=== PATIENT | female | born 1940 | race American Indian/Alaskan Native ===

== ENCOUNTER 2016-07-11 21:22 | Emergency (ER) | payer MEDICARE, OTHER ==
[2016-07-11] MEDS ORDERED: D50W (25GM) IV ONE ×2 (22:14→22:20)
[2016-07-11 23:09] LABS: Anion Gap 17 mmol/L; BUN/Creatinine Ratio 26.66; Blood Urea Nitrogen 24 mg/dL (7-17); Calcium 9.3 mg/dL (8.4-10.2); Carbon Dioxide 25 mmol/L (22-30); Chloride 103.2 mmol/L (98-107); Glucose 165 mg/dL (65-100); Potassium 4.3 mmol/L (3.6-5.0); Sodium 141 mmol/L (137-145)
[2016-07-11 23:14] LABS: Basophils % (Auto) 0.4 % (0.0-1.8); Eosinophils % (Auto) 0.8 % (0.0-4.3); Hematocrit 37.7 % (30.3-42.9); Hemoglobin 12.1 gm/dl (10.1-14.3); Mean Corpuscular HGB Conc 32 % (30-34); Mean Corpuscular Volume 80 fl (79-97); Platelet Count 211 K/mm3 (140-440); Red Cell Distribution Width 15.5 % (13.2-15.2); White Blood Count 6.9 K/mm3 (4.5-11.0)
[2016-07-11 23:16] LABS: Mean Corpuscular Hemoglobin 26 pg (28-32)
[2016-07-11 23:40] LABS: Bilirubin,Urine NEG (Negative); Blood,Urine NEG (Negative); Ketones,Urine NEG (Negative); Leukocyte Esterase,Urine MOD (Negative); Mucus,Urine FEW /HPF; Nitrite,Urine NEG (Negative); Protein,Urine <15 mg/dL mg/dL (Negative); Urobilinogen,Urine < 2.0 mg/dL (<2.0)
[2016-07-12 00:06] LABS: Anion Gap 19 mmol/L; BUN/Creatinine Ratio 31.25; Blood Urea Nitrogen 25 mg/dL (7-17); Calcium 9.4 mg/dL (8.4-10.2); Carbon Dioxide 23 mmol/L (22-30); Chloride 104.6 mmol/L (98-107); Glucose 139 mg/dL (65-100); Potassium 4.3 mmol/L (3.6-5.0); Sodium 142 mmol/L (137-145)
--- NOTE | 2016-07-12 01:20 | Emergency Department Report ---
ED General Adult HPI - General Chief complaint: Hypoglycemia Stated complaint: MIGRAINE,RT LEG PAIN Time Seen by Provider: 07/12/16 01:00 Source: patient, EMS Mode of arrival: Stretcher Limitations: Physical Limitation - History of Present Illness Initial comments: 75-year-old female with a past medical history diabetes and hypertension presents to the hospital with hypoglycemic episode. Patient stated she had generalized weakness. Upon EMS arrival Accu-Chek was 47. Upon arrival here patient received 1 amp of D50 and was fed. Positive improvement. Patient complained of a frontal headache that has improved since arrival. Patient is a chronic right leg ulcer and she has had it checked and rewrapped by wound care yesterday. No reports of infection. Severity scale (0 -10): 0 - Related Data Home Medications Medication Instructions Recorded Confirmed Last Taken Ascorbic Acid 500 mg PO DAILY 07/12/16 07/12/16 Unknown Brimonidine 0.15% 1 drop OU Q8H 07/12/16 07/12/16 Unknown Cosopt Pf Eye Drops 1 drop OU BID 07/12/16 07/12/16 Unknown Detrol LA 4 mg PO DAILY 07/12/16 07/12/16 Unknown Docusate Sodium 100 mg PO DAILY 07/12/16 07/12/16 Unknown Doxepin 25 mg PO HS 07/12/16 07/12/16 Unknown Insulin Aspart 3 unit SQ AC 07/12/16 07/12/16 Unknown Insulin Glargine 14 units SQ HS 07/12/16 07/12/16 Unknown Ipratropium/Albuterol Sulfate 3 ml IH QID PRN 07/12/16 07/12/16 Unknown Lisinopril 10 mg PO DAILY 07/12/16 07/12/16 Unknown Montelukast 10 mg PO HS 07/12/16 07/12/16 Unknown NexIUM 24Hr 40 mg PO DAILY 07/12/16 07/12/16 Unknown Potassium Chloride 20 meq PO DAILY 07/12/16 07/12/16 Unknown Simvastatin 20 mg PO DAILY 07/12/16 07/12/16 Unknown amLODIPine 5 mg PO DAILY 07/12/16 07/12/16 Unknown metFORMIN XR 1,000 mg PO DAILY 07/12/16 07/12/16 Unknown Allergies Allergy/AdvReac Type Severity Reaction Status Date / Time diphenhydramine HCl Allergy Anaphylaxis Verified 07/11/16 22:20 [From Benderrickl] Penicillins Allergy Anaphylaxis Verified 07/11/16 22:20 ED Review of Systems ROS: Stated complaint: MIGRAINE,RT LEG PAIN Other details as noted in HPI Comment: All other systems reviewed and negative Other: Constitutional: No fevers chills Eyes: No eye pain visual changes or discharge ENT: No ear pain or throat pain Neck: Denies pain Respiratory: Denies cough wheezing shortness of breath Cardiovascular: Denies chest pain, palpitations GI: Denies abdominal pain, nausea, vomiting, diarrhea : Denies dysuria, urinary frequency, or urgency Musculoskeletal: Denies back pain, joint swelling Skin: Chronic right leg ulcer Neurologic: Denies numbness, or focal weakness Psychiatric: Denies suicidal ideation, hallucinations ED Past Medical Hx - Past Medical History Previous Medical History?: Yes Hx Hypertension: Yes Hx Diabetes: Yes Additional medical history: Pancreatitis - Surgical History Past Surgical History?: Yes Additional Surgical History: "Pancreas" - Social History Smoking Status: Never Smoker Substance Use Type: None - Medications Home Medications: Home Medications Medication Instructions Recorded Confirmed Last Taken Type Ascorbic Acid 500 mg PO DAILY 07/12/16 07/12/16 Unknown History Brimonidine 0.15% 1 drop OU Q8H 07/12/16 07/12/16 Unknown History Cosopt Pf Eye Drops 1 drop OU BID 07/12/16 07/12/16 Unknown History Detrol LA 4 mg PO DAILY 07/12/16 07/12/16 Unknown History Docusate Sodium 100 mg PO DAILY 07/12/16 07/12/16 Unknown History Doxepin 25 mg PO HS 07/12/16 07/12/16 Unknown History Insulin Aspart 3 unit SQ AC 07/12/16 07/12/16 Unknown History Insulin Glargine 14 units SQ HS 07/12/16 07/12/16 Unknown History Ipratropium/Albuterol Sulfate 3 ml IH QID PRN 07/12/16 07/12/16 Unknown History Lisinopril 10 mg PO DAILY 07/12/16 07/12/16 Unknown History Montelukast 10 mg PO HS 07/12/16 07/12/16 Unknown History NexIUM 24Hr 40 mg PO DAILY 07/12/16 07/12/16 Unknown History Potassium Chloride 20 meq PO DAILY 07/12/16 07/12/16 Unknown History Simvastatin 20 mg PO DAILY 07/12/16 07/12/16 Unknown History amLODIPine 5 mg PO DAILY 07/12/16 07/12/16 Unknown History metFORMIN XR 1,000 mg PO DAILY 07/12/16 07/12/16 Unknown History ED Physical Exam - General Limitations: Physical Limitation - Other Other exam information: General: No limitations, patient is alert in no acute distress Head exam: Atraumatic, normocephalic Eyes exam: Normal appearance, pupils equal reactive to light, extraocular movements intact ENT: Moist mucous membrane, normal oropharynx Neck exam: Normal inspection, full range of motion, no meningismus nontender Respiratory exam: Clear to auscultation bilateral, no wheezes, rales, crackles Cardiovascular: Normal rate and rhythm, normal heart sounds Abdomen: Soft, nondistended, and nontender, with normal bowel sounds, no rebound, or guarding Extremity: Full range of motion. Right leg extensively wrapped by wound care nurse and not removed since examined yesterday and no reports of infection Back: Normal Inspection, full range of motion, no tenderness Neurologic: Alert, oriented x3, cranial nerves intact, no motor or sensory deficit Psychiatric: normal affect, normal mood Skin: Warm, dry, intact ED Course Vital Signs 07/11/16 07/11/16 23:11 23:24 Temperature 98 F Pulse Rate 89 Respiratory 16 16 Rate Blood Pressure 164/74 [Left] O2 Sat by Pulse 100 100 Oximetry - Reevaluation(s) Reevaluation #1: 07/12/16 01:18 Patient reports feeling much better since being in the ED. Still has a mild residual headache. Declines offer for pain medication at that time stating she trusts it would get better on its own. ED Medical Decision Making - Lab Data Result diagrams: 07/11/16 22:45 07/11/16 23:29 Lab Results 07/11/16 07/11/16 07/11/16 Range/Units 22:15 22:40 22:45 WBC 6.9 (4.5-11.0) K/mm3 RBC 4.70 (3.65-5.03) M/mm3 Hgb 12.1 (10.1-14.3) gm/dl Hct 37.7 (30.3-42.9) % MCV 80 (79-97) fl MCH 26 L (28-32) pg MCHC 32 (30-34) % RDW 15.5 H (13.2-15.2) % Plt Count 211 (140-440) K/mm3 Lymph % (Auto) 15.9 (13.4-35.0) % [place] % (Auto) 6.6 (0.0-7.3) % Eos % (Auto) 0.8 (0.0-4.3) % Baso % (Auto) 0.4 (0.0-1.8) % Lymph # 1.1 L (1.2-5.4) K/mm3 [place] # 0.5 (0.0-0.8) K/mm3 Eos # 0.1 (0.0-0.4) K/mm3 Baso # 0.0 (0.0-0.1) K/mm3 Seg Neutrophils % 76.3 H (40.0-70.0) % Seg Neutrophils # 5.3 (1.8-7.7) K/mm3 Sodium 141 (137-145) mmol/L Potassium 4.3 (3.6-5.0) mmol/L Chloride 103.2 (98-107) mmol/L Carbon Dioxide 25 (22-30) mmol/L Anion Gap 17 mmol/L BUN 24 H (7-17) mg/dL Creatinine 0.9 (0.7-1.2) mg/dL Estimated GFR > 60 ml/min BUN/Creatinine Ratio 26.66 % Glucose 165 H (65-100) mg/dL POC Glucose 43 L (70-105) Calcium 9.3 (8.4-10.2) mg/dL Urine Color (Yellow) Urine Turbidity (Clear) Urine pH (5.0-7.0) Ur Specific [place] (1.003-1.030) Urine Protein (Negative) mg/dL Urine Glucose (UA) (Negative) mg/dL Urine Ketones (Negative) mg/dL Urine Blood (Negative) Urine Nitrite (Negative) Urine Bilirubin (Negative) Urine Urobilinogen (<2.0) mg/dL Ur Leukocyte Esterase (Negative) Urine WBC (Auto) (0.0-6.0) /HPF Urine RBC (Auto) (0.0-6.0) /HPF U Epithel Cells (Auto) (0-13.0) /HPF Urine Mucus /HPF 07/11/16 07/11/16 07/12/16 Range/Units 23:11 23:29 00:07 WBC (4.5-11.0) K/mm3 RBC (3.65-5.03) M/mm3 Hgb (10.1-14.3) gm/dl Hct (30.3-42.9) % MCV (79-97) fl MCH (28-32) pg MCHC (30-34) % RDW (13.2-15.2) % Plt Count (140-440) K/mm3 Lymph % (Auto) (13.4-35.0) % [place] % (Auto) (0.0-7.3) % Eos % (Auto) (0.0-4.3) % Baso % (Auto) (0.0-1.8) % Lymph # (1.2-5.4) K/mm3 [place] # (0.0-0.8) K/mm3 Eos # (0.0-0.4) K/mm3 Baso # (0.0-0.1) K/mm3 Seg Neutrophils % (40.0-70.0) % Seg Neutrophils # (1.8-7.7) K/mm3 Sodium 142 (137-145) mmol/L Potassium 4.3 (3.6-5.0) mmol/L Chloride 104.6 (98-107) mmol/L Carbon Dioxide 23 (22-30) mmol/L Anion Gap 19 mmol/L BUN 25 H (7-17) mg/dL Creatinine 0.8 (0.7-1.2) mg/dL Estimated GFR > 60 ml/min BUN/Creatinine Ratio 31.25 % Glucose 139 H (65-100) mg/dL POC Glucose 147 H (70-105) Calcium 9.4 (8.4-10.2) mg/dL Urine Color Yellow (Yellow) Urine Turbidity Clear (Clear) Urine pH 6.0 (5.0-7.0) Ur Specific [place] 1.020 (1.003-1.030) Urine Protein <15 mg/dl (Negative) mg/dL Urine Glucose (UA) 50 (Negative) mg/dL Urine Ketones Neg (Negative) mg/dL Urine Blood Neg (Negative) Urine Nitrite Neg (Negative) Urine Bilirubin Neg (Negative) Urine Urobilinogen < 2.0 (<2.0) mg/dL Ur Leukocyte Esterase Mod (Negative) Urine WBC (Auto) 9.0 H (0.0-6.0) /HPF Urine RBC (Auto) 1.0 (0.0-6.0) /HPF U Epithel Cells (Auto) 1.0 (0-13.0) /HPF Urine Mucus Few /HPF - Medical Decision Making Patient received D50 IV and food in the ED and blood sugar remained above 100 without recurrent hypoglycemia. Patient feels better and is stable for discharge. No signs of infection at this time - Differential Diagnosis infection, insulin reaction, hypoglycemia, poor food intake Critical Care Time: No Critical care attestation.: If time is entered above; I have spent that time in minutes in the direct care of this critically ill patient, excluding procedure time. ED Disposition Clinical Impression: Hypoglycemia due to insulin Disposition: DISCHARGED TO HOME OR SELFCARE Is pt being admited?: No Does the pt Need Aspirin: No Condition: Stable Instructions: Diabetic Hypoglycemia (ED) Additional Instructions: Continue current medication and eat appropriately. Follow-up with your doctor and return if symptoms worsen. Referrals: PRIMARY CARE, [Primary Care Provider] - 2-3 Days Time of Disposition: 01:20
[2016-07-12 02:09] VITALS: BP 152/76
== END 2016-07-12 01:30 | disposition home or self-care (01) ==
LOC: ED 21:22
DX: E09.649 Drug or chemical induced diabetes mellitus with hypoglycemia without coma (principal); Z79.4 Long term (current) use of insulin; I10 Essential (primary) hypertension; Z88.0 Allergy status to penicillin; Z88.8 Allergy status to other drugs, medicaments and biological substances
CPT/HCPCS: 36415; 80048; 81001; 82962; 85025; 99284

== ENCOUNTER 2016-12-18 09:09 | Inpatient (IN) | payer MEDICARE, OTHER ==
[2016-12-18 09:57] LABS: Basophils % (Auto) 0.5 % (0.0-1.8); Eosinophils % (Auto) 0.8 % (0.0-4.3); Hematocrit 40.3 % (30.3-42.9); Hemoglobin 13.1 gm/dl (10.1-14.3); Mean Corpuscular HGB Conc 33 % (30-34); Mean Corpuscular Hemoglobin 26 pg (28-32); Mean Corpuscular Volume 80 fl (79-97); Platelet Count 190 K/mm3 (140-440); Red Blood Count 5.03 M/mm3 (3.65-5.03); Red Cell Distribution Width 16.4 % (13.2-15.2); White Blood Count 7.2 K/mm3 (4.5-11.0)
[2016-12-18 10:07] LABS: INR 0.97 (0.87-1.13)
[2016-12-18 10:08] LABS: Creatine Kinase MB 3.8 ng/mL (0.0-4.0); Partial Thromboplastin Time 29.4 Sec. (24.2-36.6)
[2016-12-18 10:09] LABS: Anion Gap 16 mmol/L; Blood Urea Nitrogen 26 mg/dL (7-17); Calcium 8.9 mg/dL (8.4-10.2); Carbon Dioxide 25 mmol/L (22-30); Chloride 105.7 mmol/L (98-107); Creatine Kinase 265 units/L (30-135); Potassium 4.1 mmol/L (3.6-5.0); Sodium 143 mmol/L (137-145)
[2016-12-18 10:22] LABS: Glucose 34 mg/dL (65-100)
[2016-12-18] MEDS ORDERED: D50W (25GM) IV ONE (10:22)
--- NOTE | 2016-12-18 10:49 | Cat Scan Report ---
CT SCAN OF THE CERVICAL SPINE: HISTORY: Injury. TECHNIQUE: Contiguous 1.25 mm axial images of the cervical spine were obtained. Sagittal and coronal reformatted images. FINDINGS: There is normal alignment of the cervical spine. The body, pedicles and posterior ligaments appear normal. No evidence of fracture or subluxation is seen. The spinal canal appears normal. The prevertebral soft tissues appear normal. IMPRESSION: Unremarkable CT of the cervical spine. No acute process is noted.
--- NOTE | 2016-12-18 10:49 | Cat Scan Report ---
CT HEAD WITHOUT CONTRAST: HISTORY: Altered mental status. TECHNIQUE: Sequential CT images without contrast. FINDINGS: Images obtained show bilateral prominence of the sulci and ventricles. There are no abnormal intra- or extra-axial blood or fluid collections. There are no focal masses or evidence of mass effect. The barbour white matter differentiation appears within normal limits. Regions of periventricular decreased attenuation are consistent with microangiopathic ischemic disease. The posterior fossa structures including the fourth ventricle, cerebellum, and brainstem appear normal. IMPRESSION: Evidence of atrophy and microangiopathic ischemic disease. No acute intracranial process noted.
[2016-12-18 11:15] LABS: Bilirubin,Urine NEG (Negative); Blood,Urine NEG (Negative); Ketones,Urine NEG (Negative); Leukocyte Esterase,Urine NEG (Negative); Nitrite,Urine NEG (Negative); Protein,Urine <15 mg/dL mg/dL (Negative); Urobilinogen,Urine < 2.0 mg/dL (<2.0); WBC,Urine < 1.0 /HPF (0.0-6.0)
--- NOTE | 2016-12-18 12:56 | Emergency Department Report ---
ED Altered Mental Status HPI - General Chief Complaint: Altered Mental Status Stated Complaint: ALTERED MENTAL STATUA Time Seen by Provider: 12/18/16 09:22 Source: family, EMS Mode of arrival: Stretcher Limitations: Altered Mental Status - History of Present Illness Initial Comments: 76-year-old female with a history of insulin-dependent diabetes, hypertension, and pancreatitis requiring surgical treatment in the past presents to the hospital complains of alteration in mental status. Patient lives with her daughter. Patient was found on the floor at approximately 7 AM and her daughter heard her calling out for her mother. His speech was slurred and incoherent. Daughter gave banana and sugar under her tongue without improvement. Daughter informs us that Accu-Chek was in the 70s prior to arrival. - Related Data Home Medications Medication Instructions Recorded Confirmed Last Taken Ascorbic Acid 500 mg PO DAILY 07/12/16 12/18/16 Unknown Brimonidine 0.15% 2 drop OU Q8H 07/12/16 12/18/16 Unknown Cosopt Pf Eye Drops 1 drop OU BID 07/12/16 12/18/16 Unknown Detrol LA 4 mg PO DAILY 07/12/16 12/18/16 Unknown Docusate Sodium 200 mg PO BID 07/12/16 12/18/16 Unknown Doxepin 25 mg PO HS 07/12/16 12/18/16 Unknown Insulin Aspart 3 unit SQ AC 07/12/16 12/18/16 Unknown Insulin Glargine 14 units SQ HS 07/12/16 12/18/16 Unknown Lisinopril 10 mg PO DAILY 07/12/16 12/18/16 Unknown Montelukast 10 mg PO HS 07/12/16 12/18/16 Unknown NexIUM 24Hr 40 mg PO DAILY 07/12/16 12/18/16 Unknown Potassium Chloride 20 meq PO DAILY 07/12/16 12/18/16 Unknown Simvastatin 20 mg PO DAILY 07/12/16 12/18/16 Unknown amLODIPine 10 mg PO DAILY 07/12/16 12/18/16 Unknown metFORMIN XR 1,000 mg PO DAILY 07/12/16 12/18/16 Unknown Allergies Allergy/AdvReac Type Severity Reaction Status Date / Time diphenhydramine HCl Allergy Anaphylaxis Verified 07/11/16 22:20 [From Benadryl] Penicillins Allergy Anaphylaxis Verified 07/11/16 22:20 ED Review of Systems ROS: Stated complaint: ALTERED MENTAL STATUA Other details as noted in HPI Comment: All other systems reviewed and negative Other: Constitutional: No fevers chills Eyes: No eye pain visual changes or discharge ENT: No ear pain or throat pain Neck: Denies pain Respiratory: Denies cough wheezing shortness of breath Cardiovascular: Denies chest pain, palpitations, syncope GI: Denies abdominal pain : Denies dysuria Musculoskeletal: Denies back pain, joint swelling Skin: Chronic right leg will be managed by milla Carlos wound dressing in place Neurologic: Confusion Psychiatric: Denies suicidal ideation, hallucinations Hematological/lymphatic: Denies easy bruising, lymphadenopathy ED Past Medical Hx - Past Medical History Hx Hypertension: Yes Hx Diabetes: Yes Additional medical history: Pancreatitis, PVD - Surgical History Additional Surgical History: "Pancreas" - Social History Smoking Status: Never Smoker Substance Use Type: None - Medications Home Medications: Home Medications Medication Instructions Recorded Confirmed Last Taken Type Ascorbic Acid 500 mg PO DAILY 07/12/16 12/18/16 Unknown History Brimonidine 0.15% 2 drop OU Q8H 07/12/16 12/18/16 Unknown History Cosopt Pf Eye Drops 1 drop OU BID 07/12/16 12/18/16 Unknown History Detrol LA 4 mg PO DAILY 07/12/16 12/18/16 Unknown History Docusate Sodium 200 mg PO BID 07/12/16 12/18/16 Unknown History Doxepin 25 mg PO HS 07/12/16 12/18/16 Unknown History Insulin Aspart 3 unit SQ AC 07/12/16 12/18/16 Unknown History Insulin Glargine 14 units SQ HS 07/12/16 12/18/16 Unknown History Lisinopril 10 mg PO DAILY 07/12/16 12/18/16 Unknown History Montelukast 10 mg PO HS 07/12/16 12/18/16 Unknown History NexIUM 24Hr 40 mg PO DAILY 07/12/16 12/18/16 Unknown History Potassium Chloride 20 meq PO DAILY 07/12/16 12/18/16 Unknown History Simvastatin 20 mg PO DAILY 07/12/16 12/18/16 Unknown History amLODIPine 10 mg PO DAILY 07/12/16 12/18/16 Unknown History metFORMIN XR 1,000 mg PO DAILY 07/12/16 12/18/16 Unknown History ED Physical Exam - General Limitations: Altered Mental Status - Other Other exam information: General: No limitations, patient is alert in no acute distress Head exam: Atraumatic, normocephalic Eyes exam: Normal appearance, pupils equal reactive to light, extraocular movements intact ENT: Moist mucous membrane, normal oropharynx Neck exam: Normal inspection, full range of motion, no meningismus nontender Respiratory exam: Clear to auscultation bilateral, no wheezes, rales, crackles Cardiovascular: Normal rate and rhythm, normal heart sounds Abdomen: Soft, nondistended, and nontender, with normal bowel sounds, no rebound, or guarding Extremity: Full range of motion normal inspection no deformity. Unna boot dressing to right foot. 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 Psychiatric: normal affect, normal mood Skin: Warm, dry, intact ED Course Vital Signs 12/18/16 12/18/16 12/18/16 09:23 09:31 09:54 Temperature 98.1 F 98.2 F Pulse Rate 86 83 Respiratory 17 Rate Blood Pressure 161/79 161/79 O2 Sat by Pulse 100 98 Oximetry 12/18/16 10:08 Temperature Pulse Rate Respiratory 20 Rate Blood Pressure O2 Sat by Pulse 99 Oximetry - Reevaluation(s) Reevaluation #1: 12/18/16 Accu-Chek in the last was in the 30s. Patient did not have any peripheral IV access despite multiple Nurse attempts. I placed 20-gauge in the right external jugular vein. One amp of D50 administered. Patient did subsequently fed. Accu-Chek is improved and mental status is at baseline. Patient states that she last took her Lantus at bedtime and did not take any insulin this morning. Patient has not yet eaten prior to being sent in the ED. Patient reports this is her regular schedule and there wasn't any new delay in her typical food intake time. - EJ/Peripheral Line Neck R Time Out Performed: Yes Indications: nurses unable to establis Skin Cleansed in Sterile Fashion: Yes Size: 20 Dressing Placed: Tegaderm, tape Patient Tolerated Procedure: well - Lab Data Result diagrams: 12/18/16 09:30 12/18/16 09:30 Lab Results 12/18/16 12/18/16 12/18/16 Range/Units 09:30 09:30 09:30 WBC 7.2 (4.5-11.0) K/mm3 RBC 5.03 (3.65-5.03) M/mm3 Hgb 13.1 (10.1-14.3) gm/dl Hct 40.3 (30.3-42.9) % MCV 80 (79-97) fl MCH 26 L (28-32) pg MCHC 33 (30-34) % RDW 16.4 H (13.2-15.2) % Plt Count 190 (140-440) K/mm3 Lymph % (Auto) 11.4 L (13.4-35.0) % [place] % (Auto) 4.2 (0.0-7.3) % Eos % (Auto) 0.8 (0.0-4.3) % Baso % (Auto) 0.5 (0.0-1.8) % Lymph # 0.8 L (1.2-5.4) K/mm3 [place] # 0.3 (0.0-0.8) K/mm3 Eos # 0.1 (0.0-0.4) K/mm3 Baso # 0.0 (0.0-0.1) K/mm3 Seg Neutrophils % 83.1 H (40.0-70.0) % Seg Neutrophils # 6.0 (1.8-7.7) K/mm3 PT 13.4 (12.2-14.9) Sec. INR 0.97 (0.87-1.13) APTT 29.4 (24.2-36.6) Sec. Sodium 143 (137-145) mmol/L Potassium 4.1 (3.6-5.0) mmol/L Chloride 105.7 (98-107) mmol/L Carbon Dioxide 25 (22-30) mmol/L Anion Gap 16 mmol/L BUN 26 H (7-17) mg/dL Creatinine 1.0 (0.7-1.2) mg/dL Estimated GFR > 60 ml/min BUN/Creatinine Ratio 26.00 % Glucose 34 L* (65-100) mg/dL POC Glucose (70-105) Calcium 8.9 (8.4-10.2) mg/dL Ammonia (25-60) umol/L Total Creatine Kinase 265 H (30-135) units/L CK-MB (CK-2) 3.8 (0.0-4.0) ng/mL CK-MB (CK-2) Rel Index 1.4 (0-4) Troponin T < 0.010 (0.00-0.029) ng/mL TSH (0.270-4.200) mlU/mL Free T4 (0.76-1.46) ng/dL Urine Color (Yellow) Urine Turbidity (Clear) Urine pH (5.0-7.0) Ur Specific [place] (1.003-1.030) Urine Protein (Negative) mg/dL Urine Glucose (UA) (Negative) mg/dL Urine Ketones (Negative) mg/dL Urine Blood (Negative) Urine Nitrite (Negative) Urine Bilirubin (Negative) Urine Urobilinogen (<2.0) mg/dL Ur Leukocyte Esterase (Negative) Urine WBC (Auto) (0.0-6.0) /HPF Urine RBC (Auto) (0.0-6.0) /HPF U Epithel Cells (Auto) (0-13.0) /HPF Blood Type Antibody Screen [facility] Antibody Screen Antibody Identification 12/18/16 12/18/16 12/18/16 Range/Units 09:30 09:30 10:10 WBC (4.5-11.0) K/mm3 RBC (3.65-5.03) M/mm3 Hgb (10.1-14.3) gm/dl Hct (30.3-42.9) % MCV (79-97) fl MCH (28-32) pg MCHC (30-34) % RDW (13.2-15.2) % Plt Count (140-440) K/mm3 Lymph % (Auto) (13.4-35.0) % [place] % (Auto) (0.0-7.3) % Eos % (Auto) (0.0-4.3) % Baso % (Auto) (0.0-1.8) % Lymph # (1.2-5.4) K/mm3 [place] # (0.0-0.8) K/mm3 Eos # (0.0-0.4) K/mm3 Baso # (0.0-0.1) K/mm3 Seg Neutrophils % (40.0-70.0) % Seg Neutrophils # (1.8-7.7) K/mm3 PT (12.2-14.9) Sec. INR (0.87-1.13) APTT (24.2-36.6) Sec. Sodium (137-145) mmol/L Potassium (3.6-5.0) mmol/L Chloride (98-107) mmol/L Carbon Dioxide (22-30) mmol/L Anion Gap mmol/L BUN (7-17) mg/dL Creatinine (0.7-1.2) mg/dL Estimated GFR ml/min BUN/Creatinine Ratio % Glucose (65-100) mg/dL POC Glucose (70-105) Calcium (8.4-10.2) mg/dL Ammonia 37.0 (25-60) umol/L Total Creatine Kinase (30-135) units/L CK-MB (CK-2) (0.0-4.0) ng/mL CK-MB (CK-2) Rel Index (0-4) Troponin T (0.00-0.029) ng/mL TSH 1.290 (0.270-4.200) mlU/mL Free T4 1.16 (0.76-1.46) ng/dL Urine Color (Yellow) Urine Turbidity (Clear) Urine pH (5.0-7.0) Ur Specific [place] (1.003-1.030) Urine Protein (Negative) mg/dL Urine Glucose (UA) (Negative) mg/dL Urine Ketones (Negative) mg/dL Urine Blood (Negative) Urine Nitrite (Negative) Urine Bilirubin (Negative) Urine Urobilinogen (<2.0) mg/dL Ur Leukocyte Esterase (Negative) Urine WBC (Auto) (0.0-6.0) /HPF Urine RBC (Auto) (0.0-6.0) /HPF U Epithel Cells (Auto) (0-13.0) /HPF Blood Type B NEGATIVE Antibody Screen TNR [facility] Antibody Screen Positive Antibody Identification Anti-D (Actively Aquired) 12/18/16 12/18/16 Range/Units 10:47 12:25 WBC (4.5-11.0) K/mm3 RBC (3.65-5.03) M/mm3 Hgb (10.1-14.3) gm/dl Hct (30.3-42.9) % MCV (79-97) fl MCH (28-32) pg MCHC (30-34) % RDW (13.2-15.2) % Plt Count (140-440) K/mm3 Lymph % (Auto) (13.4-35.0) % [place] % (Auto) (0.0-7.3) % Eos % (Auto) (0.0-4.3) % Baso % (Auto) (0.0-1.8) % Lymph # (1.2-5.4) K/mm3 [place] # (0.0-0.8) K/mm3 Eos # (0.0-0.4) K/mm3 Baso # (0.0-0.1) K/mm3 Seg Neutrophils % (40.0-70.0) % Seg Neutrophils # (1.8-7.7) K/mm3 PT (12.2-14.9) Sec. INR (0.87-1.13) APTT (24.2-36.6) Sec. Sodium (137-145) mmol/L Potassium (3.6-5.0) mmol/L Chloride (98-107) mmol/L Carbon Dioxide (22-30) mmol/L Anion Gap mmol/L BUN (7-17) mg/dL Creatinine (0.7-1.2) mg/dL Estimated GFR ml/min BUN/Creatinine Ratio % Glucose (65-100) mg/dL POC Glucose 76 (70-105) Calcium (8.4-10.2) mg/dL Ammonia (25-60) umol/L Total Creatine Kinase (30-135) units/L CK-MB (CK-2) (0.0-4.0) ng/mL CK-MB (CK-2) Rel Index (0-4) Troponin T (0.00-0.029) ng/mL TSH (0.270-4.200) mlU/mL Free T4 (0.76-1.46) ng/dL Urine Color Colorless (Yellow) Urine Turbidity Clear (Clear) Urine pH 7.0 (5.0-7.0) Ur Specific [place] 1.006 (1.003-1.030) Urine Protein <15 mg/dl (Negative) mg/dL Urine Glucose (UA) 50 (Negative) mg/dL Urine Ketones Neg (Negative) mg/dL Urine Blood Neg (Negative) Urine Nitrite Neg (Negative) Urine Bilirubin Neg (Negative) Urine Urobilinogen < 2.0 (<2.0) mg/dL Ur Leukocyte Esterase Neg (Negative) Urine WBC (Auto) < 1.0 (0.0-6.0) /HPF Urine RBC (Auto) 1.0 (0.0-6.0) /HPF U Epithel Cells (Auto) < 1.0 (0-13.0) /HPF Blood Type Antibody Screen [facility] Antibody Screen Antibody Identification - EKG Data -: EKG Interpreted by Me (sinus rhythm 85 inferior and septal Q waves. No ST elevation) - Radiology Data Radiology results: report reviewed CT head: Atrophy and microangiopathic ischemic disease. No acute findings CT cervical spine: Unremarkable - Medical Decision Making Pt's mental status improved to baseline after improvement and glucose. I suspect that alteration in mental status secondary to hypoglycemia. Cause unknown since patient has taken her normal dose of medication and states she has been eating appropriately. Patient will be admitted for observation. - Differential Diagnosis hypoglycemia, CVA, encephalopathy, UTI/infection Critical Care Time: No Critical care attestation.: If time is entered above; I have spent that time in minutes in the direct care of this critically ill patient, excluding procedure time. ED Disposition Clinical Impression: Hypoglycemia, Insulin dependent diabetes mellitus Disposition: OP ADMIT IP TO THIS HOSP Is pt being admited?: Yes Condition: Stable Time of Disposition: 12:56 (Dr Ferrell/hosp)
--- NOTE | 2016-12-18 13:16 | Admit Criteria Form ---
Admission Criteria Documentation: DIABETES, HYPOGLYCEMIA Clinical Indications for Admission to Inpatient Care (Place 'X' for any and all applicable criteria): Admission is indicated for ALL of the following (1)(2)(3)(4)(5): [X ]I. Suspected or documented hypoglycemia (plasma glucose less than 50 mg/ dL (2.78 mmol/L)) with severe clinical manifestations or issues as indicated by ANY ONE of the following: [X]a) Altered mental status (eg, coma, confusion) [ ]b) Seizure [ ]c) Ataxia [ ]d) Dysphasia [ ]e) Focal neurologic deficit(6) [ ]f) Severe weakness or fatigue [ ]g) Significant clinical signs or symptoms that do not resolve with treatment [ ]h) Hypoglycemia induced by ANY ONE of the following(7)(8)(9): [ ]i) Sulfonylurea(10) [ ]ii) Long-acting insulin (eg, half-life more than 6 hours ) (11) [ ]II. Management at other levels of care (See General Criteria: Observation Care) is not feasible because of ANY ONE of the following: [ ]a) Condition was not adequately corrected with treatment at other levels of care. [ ]b) Treatment at other levels of care is not appropriate because of condition severity (eg, coma). Extended stay beyond goal length of stay may be needed for(3)(12)(19): [ ]a) Long acting sulfonylurea-inducing hypoglycemia (10) [ ]b) Presentation in coma [ ]c) Identified etiology of hypoglycemia requires ongoing care (eg, infection ) [ ]d) Neurologic deficit [ ]e) Active serious comorbidities (eg, renal failure, heart failure) The original [employer] content created by [employer] has been revised. The portions of the content which have been revised are identified through the use of italic text or in bold, and [facility] has neither reviewed nor approved the modified material.All other unmodified content is copyright [facility]. Please see references footnoted in the original [facility] edition 2016 Admission Criteria Met: Yes
--- NOTE | 2016-12-18 18:04 | History and Physical Report ---
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 EMS was called in. Blood sugar was found to be in the 70s. She was given D50. Brought to the emergency department. Patient was found to be in the 34. Patient was given another ampule of D50. CT scan of the brain and spine where unremarkable for any fractures or dislocation. At emergency department the patient was given further D50. Mental status continued to improve. Past History Past Medical History: hypertension, hyperlipidemia, other (right lower extremities ulceration) Past Surgical History: No surgical history Social history: denies: smoking, alcohol abuse, prescription drug abuse Family history: no significant family history Medications and Allergies Allergies Allergy/AdvReac Type Severity Reaction Status Date / Time diphenhydramine HCl Allergy Anaphylaxis Verified 07/11/16 22:20 [From Benadryl] Penicillins Allergy Anaphylaxis Verified 07/11/16 22:20 Home Medications Medication Instructions Recorded Confirmed Last Taken Type Ascorbic Acid 500 mg PO DAILY 07/12/16 12/18/16 Unknown History Brimonidine 0.15% 2 drop OU Q8H 07/12/16 12/18/16 Unknown History Cosopt Pf Eye Drops 1 drop OU BID 07/12/16 12/18/16 Unknown History Detrol LA 4 mg PO DAILY 07/12/16 12/18/16 Unknown History Docusate Sodium 200 mg PO BID 07/12/16 12/18/16 Unknown History Doxepin 25 mg PO HS 07/12/16 12/18/16 Unknown History Insulin Aspart 3 unit SQ AC 07/12/16 12/18/16 Unknown History Insulin Glargine 14 units SQ HS 07/12/16 12/18/16 Unknown History Lisinopril 10 mg PO DAILY 07/12/16 12/18/16 Unknown History Montelukast 10 mg PO HS 07/12/16 12/18/16 Unknown History NexIUM 24Hr 40 mg PO DAILY 07/12/16 12/18/16 Unknown History Potassium Chloride 20 meq PO DAILY 07/12/16 12/18/16 Unknown History Simvastatin 20 mg PO DAILY 07/12/16 12/18/16 Unknown History amLODIPine 10 mg PO DAILY 07/12/16 12/18/16 Unknown History metFORMIN XR 1,000 mg PO DAILY 07/12/16 12/18/16 Unknown History Review of Systems ROS unobtainable: due to mental status Exam - Constitutional Vitals: Temp Pulse Resp BP Pulse Ox 98.2 F 83 20 161/79 99 12/18/16 09:54 12/18/16 09:54 12/18/16 10:08 12/18/16 09:54 12/18/16 10:08 General appearance: Present: no acute distress, well-nourished - EENT Eyes: Present: PERRL - Neck Neck: Present: supple, normal ROM - Respiratory Respiratory effort: normal Respiratory: bilateral: CTA - Cardiovascular Heart Sounds: Present: S1 & S2. Absent: rub, click - Extremities Extremities: pulses symmetrical, No edema Peripheral Pulses: within normal limits - Abdominal General gastrointestinal: Present: soft, non-tender, non-distended, normal bowel sounds - Integumentary Integumentary: Present: clear, warm, dry - Musculoskeletal Musculoskeletal: gait normal, strength equal bilaterally - Psychiatric Psychiatric: appropriate mood/affect, intact judgment & insight - Neurologic Neurologic: CNII-XII intact, moves all extremities Results - Labs CBC & Chem 7: 12/18/16 09:30 12/18/16 09:30 Labs: Abnormal lab results 12/18/16 12/18/16 Range/Units 09:30 09:30 MCH 26 L (28-32) pg RDW 16.4 H (13.2-15.2) % Lymph % (Auto) 11.4 L (13.4-35.0) % Lymph # 0.8 L (1.2-5.4) K/mm3 Seg Neutrophils % 83.1 H (40.0-70.0) % BUN 26 H (7-17) mg/dL Glucose 34 L* (65-100) mg/dL Total Creatine Kinase 265 H (30-135) units/L - Imaging and Cardiology EKG: report reviewed (CT scan of the brain was unremarkable) Assessment and Plan - Metabolic encephalopathy secondary to hypoglycemia - Hypoglycemia - Ulceration of the right lower extremity - Diabetes mellitus hypertension Plan We'll admit patient to [facility], Commence D5 half-normal. A1c, Sliding-scale insulin, consistent carbohydrates diet Optimize blood pressure control by commencing home oral antihypertensives Wound Care consult for chronic wound on the right lower extremity currently in an karl boot DVT prophylaxis with Lovenox and GI prophylaxis with Pepcid Spent 32 minutes during this admission process as well as in evaluating the laboratory and radiological data
[2016-12-18] MEDS ORDERED: D50W (25GM) IV PRN (22:34)
[2016-12-18] MEDS ORDERED: D5NS 1,000 ML IV SCH (23:00)
[2016-12-19] MEDS: PERCOCET 5/325 PO PRN ×3 (03:13→22:26)
[2016-12-19] MEDS: ASPIRIN PO SCH (11:07)
[2016-12-19] MEDS: LOVENOX SUB-Q SCH (11:07)
[2016-12-19] MEDS: NOVOLOG SUB-Q SCH ×4 (11:16→22:26)
--- NOTE | 2016-12-19 14:08 | Progress Note ---
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 EMS was called in. Blood sugar was found to be in the 70s. She was given D50. Brought to the emergency department. Patient was found to be in the 34. Patient was given another ampule of D50. CT scan of the brain and spine where unremarkable for any fractures or dislocation. At emergency department the patient was given further D50. Mental status continued to improve. Patient reports no change in medication is not sure why her blood sugar study for denies any past episode of this. She denies any recent weight loss. - Metabolic encephalopathy secondary to hypoglycemia -Hypertensive urgency -Abdominal pain possible peritoneal irritation - Hypoglycemia - Ulceration of the right lower extremity - Diabetes mellitus hypertension Plan * Continue supportive care, * Resume home blood pressure medications * Continue D5 half normal saline A1c, Sliding-scale insulin, consistent carbohydrates diet * Obtain CT abdomen and pelvis * Wound Care consult for chronic wound on the right lower extremity currently in an karl boot * PT OT evaluation and treat * DVT prophylaxis with Lovenox and GI prophylaxis with Pepcid * Plan of care discussed with the patient in detail * Anticipate discharge in a.m. if all remains stable patient may need adjustment to dose of insulin. History Interval history: Patient seen and examination today in no acute distress reports left sided abdominal pain which started following her fall. Denies any nausea vomiting or diarrhea. She denies any change in medication recently. Denies double does not medication. Does not recall events prior to her loss of consciousness Hospitalist Physical - Physical exam Narrative exam: VITAL SIGNS: Reviewed. GENERAL: The patient appeared well nourished and normally developed, obese. Vital signs as documented. HEAD: No signs of head trauma. EYES: Pupils are equal. Extraocular motions intact. EARS: Hearing grossly intact. MOUTH: Oropharynx is normal. NECK: No adenopathy, no JVD. CHEST: Chest with clear breath sounds bilaterally. No wheezes, rales, or rhonchi. CARDIAC: Regular rate and rhythm. S1 and S2, without murmurs, gallops, or rubs. VASCULAR: No Edema. Peripheral pulses normal and equal in all extremities. ABDOMEN: Soft, tender left lower quadrant. No sign of distention. No rebound or guarding, and no masses palpated. Bowel Sounds normal. MUSCULOSKELETAL: Good range of motion of all major joints. Extremities without clubbing, cyanosis or edema. NEUROLOGIC EXAM: Alert and oriented x 3. No focal sensory or strength deficits. Speech normal. Follows commands. PSYCHIATRIC: Mood normal. SKIN: No rash or lesions. - Constitutional Vitals: Temp Pulse Resp BP Pulse Ox 98.2 F 66 12 182/84 98 12/19/16 13:07 12/19/16 13:07 12/19/16 13:07 12/19/16 13:07 12/19/16 13:07 General appearance: Present: no acute distress, well-nourished Results - Labs CBC & Chem 7: 12/18/16 09:30 12/18/16 09:30 Labs: Laboratory Last Values WBC 7.2 K/mm3 (4.5-11.0) 12/18/16 09:30 RBC 5.03 M/mm3 (3.65-5.03) 12/18/16 09:30 Hgb 13.1 gm/dl (10.1-14.3) 12/18/16 09:30 Hct 40.3 % (30.3-42.9) 12/18/16 09:30 MCV 80 fl (79-97) 12/18/16 09:30 MCH 26 pg (28-32) L 12/18/16 09:30 MCHC 33 % (30-34) 12/18/16 09:30 RDW 16.4 % (13.2-15.2) H 12/18/16 09:30 Plt Count 190 K/mm3 (140-440) 12/18/16 09:30 Lymph % (Auto) 11.4 % (13.4-35.0) L 12/18/16 09:30 [place] % (Auto) 4.2 % (0.0-7.3) 12/18/16 09:30 Eos % (Auto) 0.8 % (0.0-4.3) 12/18/16 09:30 Baso % (Auto) 0.5 % (0.0-1.8) 12/18/16 09:30 Lymph # 0.8 K/mm3 (1.2-5.4) L 12/18/16 09:30 [place] # 0.3 K/mm3 (0.0-0.8) 12/18/16 09:30 Eos # 0.1 K/mm3 (0.0-0.4) 12/18/16 09:30 Baso # 0.0 K/mm3 (0.0-0.1) 12/18/16 09:30 Seg Neutrophils % 83.1 % (40.0-70.0) H 12/18/16 09:30 Seg Neutrophils # 6.0 K/mm3 (1.8-7.7) 12/18/16 09:30 PT 13.4 Sec. (12.2-14.9) 12/18/16 09:30 INR 0.97 (0.87-1.13) 12/18/16 09:30 APTT 29.4 Sec. (24.2-36.6) 12/18/16 09:30 Sodium 143 mmol/L (137-145) 12/18/16 09:30 Potassium 4.1 mmol/L (3.6-5.0) 12/18/16 09:30 Chloride 105.7 mmol/L (98-107) 12/18/16 09:30 Carbon Dioxide 25 mmol/L (22-30) 12/18/16 09:30 Anion Gap 16 mmol/L 12/18/16 09:30 BUN 26 mg/dL (7-17) H 12/18/16 09:30 Creatinine 1.0 mg/dL (0.7-1.2) 12/18/16 09:30 Estimated GFR > 60 ml/min 12/18/16 09:30 BUN/Creatinine Ratio 26.00 % 12/18/16 09:30 Glucose 34 mg/dL (65-100) L* 12/18/16 09:30 POC Glucose 136 (70-105) H 12/19/16 07:30 Calcium 8.9 mg/dL (8.4-10.2) 12/18/16 09:30 Ammonia 37.0 umol/L (25-60) 12/18/16 09:30 Total Creatine Kinase 265 units/L (30-135) H 12/18/16 09:30 CK-MB (CK-2) 3.8 ng/mL (0.0-4.0) 12/18/16 09:30 CK-MB (CK-2) Rel Index 1.4 (0-4) 12/18/16 09:30 Troponin T < 0.010 ng/mL (0.00-0.029) 12/18/16 09:30 TSH 1.290 mlU/mL (0.270-4.200) 12/18/16 09:30 Free T4 1.16 ng/dL (0.76-1.46) 12/18/16 09:30 Urine Color Colorless (Yellow) 12/18/16 10:47 Urine Turbidity Clear (Clear) 12/18/16 10:47 Urine pH 7.0 (5.0-7.0) 12/18/16 10:47 Ur Specific [place] 1.006 (1.003-1.030) 12/18/16 10:47 Urine Protein <15 mg/dl mg/dL (Negative) 12/18/16 10:47 Urine Glucose (UA) 50 mg/dL (Negative) 12/18/16 10:47 Urine Ketones Neg mg/dL (Negative) 12/18/16 10:47 Urine Blood Neg (Negative) 12/18/16 10:47 Urine Nitrite Neg (Negative) 12/18/16 10:47 Urine Bilirubin Neg (Negative) 12/18/16 10:47 Urine Urobilinogen < 2.0 mg/dL (<2.0) 12/18/16 10:47 Ur Leukocyte Esterase Neg (Negative) 12/18/16 10:47 Urine WBC (Auto) < 1.0 /HPF (0.0-6.0) 12/18/16 10:47 Urine RBC (Auto) 1.0 /HPF (0.0-6.0) 12/18/16 10:47 U Epithel Cells (Auto) < 1.0 /HPF (0-13.0) 12/18/16 10:47 Blood Type B NEGATIVE 12/18/16 10:10 Antibody Screen TNR 12/18/16 10:10 [place] Antibody Screen Positive 12/18/16 10:10 Antibody Identification Anti-D (Actively Aquired) 12/18/16 10:10 - Imaging and Cardiology CT scan - abdomen: pending CT scan - pelvis: pending
--- NOTE | 2016-12-19 15:06 | Cat Scan Report ---
CT OF THE ABDOMEN AND PELVIS WITHOUT CONTRAST HISTORY: Left lower quadrant abdominal pain. TECHNIQUE: Helical CT without contrast. Sagittal and coronal reformatted images. FINDINGS: The lung bases are clear. Normal heart size. No suspicious bony lesion or fracture. The gallbladder has been surgically removed. There is moderate diffuse biliary dilatation which may be secondary to cholecystectomy. No definite obstructing lesion is appreciated. The liver, pancreas, spleen, and left kidney are unremarkable. 2 or 3 punctate calyceal stones are noted in the right kidney. No ureteral stones or hydronephrosis. The bladder is unremarkable. The uterus and adnexa are within normal limits. Previous ventral wall hernia repair changes are suspected. The bowel loops are normal caliber and wall thickness. There is moderate stool in the colon. No obstruction or acute inflammatory changes. Impression: No acute inflammatory process is appreciated. Cholecystectomy with diffuse biliary dilatation. Right nephrolithiasis, nonobstructing. Mild fecal retention.
[2016-12-19] MEDS: ZESTRIL PO SCH (18:00)
[2016-12-19] MEDS: NORVASC PO SCH (18:00)
[2016-12-19] MEDS ORDERED: MILK OF MAGNESIA PO PRN (21:37)
[2016-12-20] MEDS ORDERED: ZOFRAN IV PRN (00:15)
[2016-12-20] MEDS: ZESTRIL PO SCH (10:06)
[2016-12-20] MEDS: ASPIRIN PO SCH (10:06)
[2016-12-20] MEDS: NORVASC PO SCH (10:07)
[2016-12-20] MEDS: LOVENOX SUB-Q SCH (10:08)
[2016-12-20] MEDS: NOVOLOG SUB-Q SCH ×2 (11:12→14:29)
--- NOTE | 2016-12-20 13:13 | Discharge Summary ---
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 EMS was called in. Blood sugar was found to be in the 70s. She was given D50. Brought to the emergency department. Patient was found to be in the 34. Patient was given another ampule of D50. CT scan of the brain and spine where unremarkable for any fractures or dislocation. At emergency department the patient was given further D50. Mental status continued to improve. Patient reports no change in medication is not sure why her blood sugar study for denies any past episode of this. On further discussion she does admit to about 10 pounds of weight loss. She also states that she takes metformin 1000 mg daily and Lantus 30 units daily at bedtime and says that increased the Lantus she has been having forgetfulness and confusion and disorientation according to her daughter. On review of her med rec sheet supposed to be on Lantus 14 units daily. At this time will resume her Lantus 14 units daily and was advised discontinuation of sliding-scale coverage until blood glucose is stabilized. Patient had a bowel movements. Discharge diagnosis - Metabolic encephalopathy secondary to hypoglycemia - Hypertensive urgency - Abdominal pain possible peritoneal irritation - Hypoglycemia - Mild nephrolithiasis without hydronephrosis - Urinary Incontinence chronic - Ulceration of the right lower extremity - Diabetes mellitus Disposition: [id number] HOME UNDER HOME HL Time spent for discharge: 35 mins Core Measure Documentation - Palliative Care Palliative Care/ Comfort Measures: Not Applicable - Core Measures Any of the following diagnoses?: none - VTE Discharge Requirements Deep Vein Thrombosis/Pulmonary Embolism Present on Admission: No Exam - Physical Exam Narrative exam: VITAL SIGNS: Reviewed. GENERAL: The patient appeared well nourished and normally developed, obese. Vital signs as documented. HEAD: No signs of head trauma. EYES: Pupils are equal. Extraocular motions intact. EARS: Hearing grossly intact. MOUTH: Oropharynx is normal. NECK: No adenopathy, no JVD. CHEST: Chest with clear breath sounds bilaterally. No wheezes, rales, or rhonchi. CARDIAC: Regular rate and rhythm. S1 and S2, without murmurs, gallops, or rubs. VASCULAR: No Edema. Peripheral pulses normal and equal in all extremities. ABDOMEN: Soft, nontender no sign of distention. No rebound or guarding, and no masses palpated. Bowel Sounds normal. MUSCULOSKELETAL: Good range of motion of all major joints. Extremities without clubbing, cyanosis or edema. NEUROLOGIC EXAM: Alert and oriented x 3. No focal sensory or strength deficits. Speech normal. Follows commands. PSYCHIATRIC: Mood normal. SKIN: No rash or lesions. - Constitutional Vitals: Temp Pulse Resp BP Pulse Ox 98.2 F 88 18 148/69 99 12/20/16 08:00 12/20/16 10:07 12/20/16 08:00 12/20/16 10:07 12/20/16 08:00 Plan Activity: advance as tolerated, fall precautions Diet: diabetic Special Instructions: record daily weights, record daily BP diary, record blood sugar diary Follow up with: PRIMARY CAREMD [Primary Care Provider] - 7 Days Forms: Accompanied Note Prescriptions: Detrol LA 4 mg PO DAILY #30 Doxepin 25 mg PO HS #30
[2016-12-20] MEDS ORDERED: DETROL LA PO SCH (14:00)
[2016-12-20 14:32] VITALS: BP 140/86
[2016-12-20] MEDS ORDERED: GLUCOPHAGE PO SCH (17:00)
[2016-12-20] MEDS ORDERED: SINEquan PO SCH (22:00)
== END 2016-12-20 15:40 | disposition home health service (06) | DRG 637 ==
LOC: ED 09:09 → 4A 22:30
PROVIDERS: ADMIT Family Medicine; ATTEND Internal Medicine
DX: E11.649 Type 2 diabetes mellitus with hypoglycemia without coma (principal); G93.41 Metabolic encephalopathy; K65.9 Peritonitis, unspecified; L97.919 Non-pressure chronic ulcer of unspecified part of right lower leg with unspecified severity; R29.898 Other symptoms and signs involving the musculoskeletal system; I10 Essential (primary) hypertension; E78.5 Hyperlipidemia, unspecified; I16.0 Hypertensive urgency; N20.0 Calculus of kidney; Z88.0 Allergy status to penicillin; Z88.8 Allergy status to other drugs, medicaments and biological substances; R32 Unspecified urinary incontinence
CPT/HCPCS: 36415; 70450; 72125; 74176; 80048; 81001; 82140; 82550; 82553; 82962; 84439; 84443; 84484; 85025; 85610; 85730; 86850; 86870; 86900; 86901; 93005; 93010; 94660; 96374; 99285; A9270-GY; G8978-GP; G8979-GP; G8980-GP; J1650; J1815; J2405; J7042

== ENCOUNTER 2018-07-26 23:35 | Emergency (ER) | payer MEDICARE, OTHER ==
[2018-07-27 00:30] LABS: Eosinophils % (Auto) 0.9 % (0.0-4.3); Hematocrit 36.9 % (30.3-42.9); Hemoglobin 12.2 gm/dl (10.1-14.3); Lymphocytes # (Auto) 0.6 K/mm3 (1.2-5.4); Lymphocytes % (Auto) 14.4 % (13.4-35.0); Mean Corpuscular HGB Conc 33 % (30-34); Mean Corpuscular Volume 80 fl (79-97); Monocytes # (Auto) 0.2 K/mm3 (0.0-0.8); Monocytes % (Auto) 5.8 % (0.0-7.3); Platelet Count 245 K/mm3 (140-440); Red Blood Count 4.59 M/mm3 (3.65-5.03); Red Cell Distribution Width 14.5 % (13.2-15.2)
[2018-07-27 00:46] LABS: Alanine Aminotransferase 15 units/L (7-56); Albumin 3.3 g/dL (3.9-5); BUN/Creatinine Ratio 17; Blood Urea Nitrogen 17 mg/dL (7-17); Calcium 8.9 mg/dL (8.4-10.2); Hemolysis Index 18
[2018-07-27] MEDS ORDERED: ZOFRAN IV ONE (01:33)
[2018-07-27] MEDS ORDERED: HumuLIN R IV ONE (01:33)
[2018-07-27] MEDS ORDERED: MORPHINE IV ONE (01:33)
[2018-07-27] MEDS ORDERED: NACL 0.9% 500 ML 500 ML IV ONE (01:34)
--- NOTE | 2018-07-27 02:51 | Emergency Department Report ---
ED Abdominal Pain HPI - General Chief Complaint: Abdominal Pain Stated Complaint: STOMACH AND RECTAL PAIN FROM FALL Time Seen by Provider: 07/27/18 01:25 Source: patient, family Mode of arrival: Wheelchair Limitations: Physical Limitation - History of Present Illness Initial Comments: 77-year-old female with a past medical history diabetes (on insulin), hypertension, and pancreatitis treated surgically presents to the hospital with complaints of abdominal pain buttock pain past 3 days. Symptoms started after she fell landing on her butt. There is complaints of pain to gluteal area that is constant and worse with pressure. She is a generalized abdominal pain that is also constant and worse with palpation. She denies nausea, vomiting, diar tom, dysuria, fever and states she has been eating appropriately. Patient's glucose has been running elevated last several weeks. PMD as [facility] Severity scale (0 -10): 9 - Related Data Home Medications Medication Instructions Recorded Confirmed Last Taken Ascorbic Acid 500 mg PO DAILY 07/12/16 12/18/16 Unknown Brimonidine 0.15% 2 drop OU Q8H 07/12/16 12/18/16 Unknown Cosopt Pf Eye Drops 1 drop OU BID 07/12/16 12/18/16 Unknown Docusate Sodium 200 mg PO BID 07/12/16 12/18/16 Unknown Insulin Glargine 14 units SQ HS 07/12/16 12/18/16 Unknown Lisinopril 10 mg PO DAILY 07/12/16 12/18/16 Unknown Montelukast 10 mg PO HS 07/12/16 12/18/16 Unknown NexIUM 24Hr 40 mg PO DAILY 07/12/16 12/18/16 Unknown Potassium Chloride 20 meq PO DAILY 07/12/16 12/18/16 Unknown Simvastatin 20 mg PO DAILY 07/12/16 12/18/16 Unknown amLODIPine 10 mg PO DAILY 07/12/16 12/18/16 Unknown metFORMIN XR 1,000 mg PO DAILY 07/12/16 12/18/16 Unknown Previous Rx's Medication Instructions Recorded Last Taken Type Detrol LA 4 mg PO DAILY #30 12/20/16 Unknown Rx Doxepin 25 mg PO HS #30 12/20/16 Unknown Rx Ibuprofen [Motrin] 800 mg PO Q8HR PRN #20 tablet 07/27/18 Unknown Rx traMADol [Ultram 50 MG tab] 50 mg PO Q6HR PRN #20 tablet 07/27/18 Unknown Rx Allergies Allergy/AdvReac Type Severity Reaction Status Date / Time diphenhydramine HCl Allergy Anaphylaxis Verified 07/11/16 22:20 [From Benadryl] Penicillins Allergy Anaphylaxis Verified 07/11/16 22:20 ED Review of Systems ROS: Stated complaint: STOMACH AND RECTAL PAIN FROM FALL Other details as noted in HPI Comment: All other systems reviewed and negative ED Past Medical Hx - Past Medical History Previous Medical History?: Yes Hx Hypertension: Yes Hx Diabetes: Yes Additional medical history: Pancreatitis, PVD - Surgical History Past Surgical History?: Yes Additional Surgical History: "Pancreas" - Social History Smoking Status: Never Smoker Substance Use Type: None - Medications Home Medications: Home Medications Medication Instructions Recorded Confirmed Last Taken Type Ascorbic Acid 500 mg PO DAILY 07/12/16 12/18/16 Unknown History Brimonidine 0.15% 2 drop OU Q8H 07/12/16 12/18/16 Unknown History Cosopt Pf Eye Drops 1 drop OU BID 07/12/16 12/18/16 Unknown History Docusate Sodium 200 mg PO BID 07/12/16 12/18/16 Unknown History Insulin Glargine 14 units SQ HS 07/12/16 12/18/16 Unknown History Lisinopril 10 mg PO DAILY 07/12/16 12/18/16 Unknown History Montelukast 10 mg PO HS 07/12/16 12/18/16 Unknown History NexIUM 24Hr 40 mg PO DAILY 07/12/16 12/18/16 Unknown History Potassium Chloride 20 meq PO DAILY 07/12/16 12/18/16 Unknown History Simvastatin 20 mg PO DAILY 07/12/16 12/18/16 Unknown History amLODIPine 10 mg PO DAILY 07/12/16 12/18/16 Unknown History metFORMIN XR 1,000 mg PO DAILY 07/12/16 12/18/16 Unknown History Detrol LA 4 mg PO DAILY #30 12/20/16 Unknown Rx Doxepin 25 mg PO HS #30 12/20/16 Unknown Rx Ibuprofen [Motrin] 800 mg PO Q8HR PRN #20 tablet 07/27/18 Unknown Rx traMADol [Ultram 50 MG tab] 50 mg PO Q6HR PRN #20 tablet 07/27/18 Unknown Rx ED Physical Exam - General Limitations: Physical Limitation - Other Other exam information: General: Patient looks uncomfortable due to pain Head exam: Atraumatic, normocephalic Eyes exam: Normal appearance, pupils equal reactive to light ENT: Moist mucous membrane, normal oropharynx Neck exam: Normal inspection, full range of motion Respiratory exam: Clear to auscultation bilateral, no wheezes, rales, crackles Cardiovascular: Normal rate and rhythm, normal heart sounds Abdomen: Soft, nondistended, previous surgical scars noted, generalized abdominal tenderness, with normal bowel sounds, no rebound, or guarding Extremity: Full range of motion normal inspection no deformity Back: Normal Inspection, full range of motion, tenderness to posterior sacral area between gluteal fold towards the xiphoid process. No ecchymosis, hematoma, or swelling. Neurologic: Alert, oriented x3, cranial nerves intact, no motor or sensory deficit Psychiatric: normal affect, normal mood Skin: Warm, dry, intact ED Course Vital Signs 07/26/18 07/27/18 07/27/18 23:35 01:10 01:40 Temperature 98.8 F Pulse Rate 80 89 Respiratory 18 20 20 Rate Blood Pressure 121/70 Blood Pressure 177/74 [Left] O2 Sat by Pulse 99 99 Oximetry 07/27/18 03:00 Temperature Pulse Rate 79 Respiratory 16 Rate Blood Pressure Blood Pressure 148/66 [Left] O2 Sat by Pulse 99 Oximetry - Consultations Consultation #1: 07/27/18 04:10 Case was discussed with Dr. De Luna with GI. Patient does not need any emergent workup for dilatation of intrahepatic ducts unless she remains symptomatic. Patient has normal LFTs, lacks leukocytosis, or fever. ED Medical Decision Making - Lab Data Result diagrams: 07/27/18 00:01 07/27/18 00:01 Lab Results 07/27/18 07/27/18 07/27/18 Range/Units 00:01 00:01 00:37 WBC 4.3 L (4.5-11.0) K/mm3 RBC 4.59 (3.65-5.03) M/mm3 Hgb 12.2 (10.1-14.3) gm/dl Hct 36.9 (30.3-42.9) % MCV 80 (79-97) fl MCH 27 L (28-32) pg MCHC 33 (30-34) % RDW 14.5 (13.2-15.2) % Plt Count 245 (140-440) K/mm3 Lymph % (Auto) 14.4 (13.4-35.0) % [place] % (Auto) 5.8 (0.0-7.3) % Eos % (Auto) 0.9 (0.0-4.3) % Baso % (Auto) Table Cover Folder Lymph # 0.6 L (1.2-5.4) K/mm3 [place] # 0.2 (0.0-0.8) K/mm3 Eos # 0.0 (0.0-0.4) K/mm3 Baso # 0.0 (0.0-0.1) K/mm3 Seg Neutrophils % 78.3 H (40.0-70.0) % Seg Neutrophils # 3.3 (1.8-7.7) K/mm3 VBG pH 7.369 (7.320-7.420) Sodium 136 L (137-145) mmol/L Potassium 4.6 (3.6-5.0) mmol/L Chloride 99.5 (98-107) mmol/L Carbon Dioxide 28 (22-30) mmol/L Anion Gap 13 mmol/L BUN 17 (7-17) mg/dL Creatinine 1.0 (0.7-1.2) mg/dL Estimated GFR > 60 ml/min BUN/Creatinine Ratio 17 % Glucose 356 H (65-100) mg/dL Calcium 8.9 (8.4-10.2) mg/dL Total Bilirubin 0.30 (0.1-1.2) mg/dL AST 15 (5-40) units/L ALT 15 (7-56) units/L Alkaline Phosphatase 137 H (35-129) units/L Total Protein 6.2 L (6.3-8.2) g/dL Albumin 3.3 L (3.9-5) g/dL Albumin/Globulin Ratio 1.1 % Lipase 12 L (13-60) units/L Urine Color (Yellow) Urine Turbidity (Clear) Urine pH (5.0-7.0) Ur Specific [place] (1.003-1.030) Urine Protein (Negative) mg/dL Urine Glucose (UA) (Negative) mg/dL Urine Ketones (Negative) mg/dL Urine Blood (Negative) Urine Nitrite (Negative) Urine Bilirubin (Negative) Urine Urobilinogen (<2.0) mg/dL Ur Leukocyte Esterase (Negative) Urine WBC (Auto) (0.0-6.0) /HPF Urine RBC (Auto) (0.0-6.0) /HPF U Epithel Cells (Auto) (0-13.0) /HPF 07/27/18 Range/Units 02:46 WBC (4.5-11.0) K/mm3 RBC (3.65-5.03) M/mm3 Hgb (10.1-14.3) gm/dl Hct (30.3-42.9) % MCV (79-97) fl MCH (28-32) pg MCHC (30-34) % RDW (13.2-15.2) % Plt Count (140-440) K/mm3 Lymph % (Auto) (13.4-35.0) % [place] % (Auto) (0.0-7.3) % Eos % (Auto) (0.0-4.3) % Baso % (Auto) Lymph # (1.2-5.4) K/mm3 [place] # (0.0-0.8) K/mm3 Eos # (0.0-0.4) K/mm3 Baso # (0.0-0.1) K/mm3 Seg Neutrophils % (40.0-70.0) % Seg Neutrophils # (1.8-7.7) K/mm3 VBG pH (7.320-7.420) Sodium (137-145) mmol/L Potassium (3.6-5.0) mmol/L Chloride (98-107) mmol/L Carbon Dioxide (22-30) mmol/L Anion Gap mmol/L BUN (7-17) mg/dL Creatinine (0.7-1.2) mg/dL Estimated GFR ml/min BUN/Creatinine Ratio % Glucose (65-100) mg/dL Calcium (8.4-10.2) mg/dL Total Bilirubin (0.1-1.2) mg/dL AST (5-40) units/L ALT (7-56) units/L Alkaline Phosphatase (35-129) units/L Total Protein (6.3-8.2) g/dL Albumin (3.9-5) g/dL Albumin/Globulin Ratio % Lipase (13-60) units/L Urine Color Yellow (Yellow) Urine Turbidity Clear (Clear) Urine pH 7.0 (5.0-7.0) Ur Specific [place] 1.023 (1.003-1.030) Urine Protein <15 mg/dl (Negative) mg/dL Urine Glucose (UA) >=500 (Negative) mg/dL Urine Ketones Neg (Negative) mg/dL Urine Blood Neg (Negative) Urine Nitrite Neg (Negative) Urine Bilirubin Neg (Negative) Urine Urobilinogen < 2.0 (<2.0) mg/dL Ur Leukocyte Esterase Neg (Negative) Urine WBC (Auto) 1.0 (0.0-6.0) /HPF Urine RBC (Auto) 3.0 (0.0-6.0) /HPF U Epithel Cells (Auto) 1.0 (0-13.0) /HPF - Radiology Data Radiology results: report reviewed PROCEDURE: CT ABDOMEN PELVIS W CON TECHNIQUE: Routine axial imaging was obtained of the abdomen and pelvis foll owing the intravenous injection of 180 contrast. Delayed imaging was obtained through the kidneys u reters and bladder. Coronal and sagittal reconstructions were reviewed. HISTORY: gen abd pain, sacral pain after fall COMPARISONS: None FINDINGS: The lung bases reveal chronic changes. There are no infiltrates or effusions. The liver is normal in size and reveals dilatation of the intrahepatic and extra hepatic ducts. The common bile measures 1.5 cm in diameter. A stricture in the distal common duct cannot be excluded. There are no intrahepatic lesions otherwise. The gallbladder is not distended. The pancreas is atrophic. The spleen and adrenal glands appear normal. The kidneys reveal a 2.1 cm benign cortical cyst in the right kidney anteriorly. There is no evidence of hydronephrosis. This large midline ventral hernia containing multiple large bowel and small bowel loops. 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 There is no evidence of bowel obstruction or ileus. The appendix is not seen with certainty. There is no evidence of free fluid or adenopathy. In the pelvis the uterus and bladder appear normal. The skeletal structures reveal multilevel disc degeneration in the lumbar spine. IMPRESSION: Large ventral midline abdominal wall hernia containing multiple bowel loops. No evidence of bowel obstruction. Dilatation of the intrahepatic and extra hepatic ducts. The stricture in the distal common duct cannot be excluded. MRCP is recommended for initial further evaluation. Atrophic pancreas. Benign cortical cysts in the right kidney. 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 - Medical Decision Making Symptoms improved with each treatment. Tolerating by mouth and no clinical signs of obstruction. No obstruction seen on CT. Patient provided a copy of her CAT scan so she may follow up with her primary care physician and a surgeon for further workup. - Differential Diagnosis obstruction, fracture, abdominal pain NOS, UTI, contusion Critical Care Time: No Critical care attestation.: If time is entered above; I have spent that time in minutes in the direct care of this critically ill patient, excluding procedure time. ED Disposition Clinical Impression: Abdominal pain, Contusion, buttock, Uncontrolled diabetes mellitus Disposition: TO HOME OR SELFCARE Is pt being admited?: Yes Condition: Stable Instructions: Diabetes Mellitus Type 2 in Adults (ED), Abdominal Pain (ED), Contusion in Adults (ED) Additional Instructions: Take the medication as prescribed. Follow up with your doctor or the clinic/doctor provided. Return if symptoms worsen as indicated by your discharge instructions. Take a copy of the CAT scan provided to your doctor for follow up. Take [id number] stool softeners as needed for constipation. Prescriptions: Ibuprofen [Motrin] 800 mg PO Q8HR PRN #20 tablet PRN Reason: Pain, Moderate (4-6) traMADol [Ultram 50 MG tab] 50 mg PO Q6HR PRN #20 tablet PRN Reason: Pain Referrals: [facility] BHUPENDRA [Primary Care Provider] - 3-5 Days your, primary care doctor [Other] - 3-5 Days CRISTINA BE DO [Staff Physician] - 3-5 Days Time of Disposition: 04:26
[2018-07-27 03:19] VITALS: BP 148/66
[2018-07-27 03:29] LABS: Bilirubin,Urine NEG (Negative); Blood,Urine NEG (Negative); Color,Urine Yellow (Yellow); Protein,Urine <15 mg/dL mg/dL (Negative); Urobilinogen,Urine < 2.0 mg/dL (<2.0)
--- NOTE | 2018-07-27 03:45 | Cat Scan Report ---
PROCEDURE: CT ABDOMEN PELVIS W CON TECHNIQUE: Routine axial imaging was obtained of the abdomen and pelvis following the intravenous in jection of 180 contrast. Delayed imaging was obtained through the kidneys ureters and bladder. [place] l and sagittal reconstructions were reviewed. HISTORY: gen abd pain, sacral pain after fall COMPARISONS: None FINDINGS: The lung bases reveal chronic changes. There are no infiltrates or effusions. The liver is normal in size and reveals dilatation of the intrahepatic and extra hepatic ducts. The c ommon bile measures 1.5 cm in diameter. A stricture in the distal common duct cannot be excluded. The re are no intrahepatic lesions otherwise. The gallbladder is not distended. The pancreas is atrophic. The spleen and adrenal glands appear normal. The kidneys reveal a 2.1 cm benign cortical cyst in the right kidney anteriorly. There is no evidence of hydronephrosis. This large midline ventral hernia containing multiple large bowel and small bowel loops. Within the h ernia is a peripherally calcified 1.9 cm thrombosed aneurysm, presumably coming off a branch of the s uperior mesenteric artery. There is no evidence of bowel obstruction or ileus. The appendix is not se en with certainty. There is no evidence of free fluid or adenopathy. In the pelvis the uterus and oscar dder appear normal. The skeletal structures reveal multilevel disc degeneration in the lumbar spine. IMPRESSION: Large ventral midline abdominal wall hernia containing multiple bowel loops. No evidence of bowel obs truction. Dilatation of the intrahepatic and extra hepatic ducts. The stricture in the distal common duct canno t be excluded. MRCP is recommended for initial further evaluation. Atrophic pancreas. Benign cortical cysts in the right kidney. 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 This document is electronically signed by Dl Mejia MD., July 27 2018 03:41:54 AM ET
== END 2018-07-27 04:46 | disposition home or self-care (01) ==
LOC: ED 23:35
DX: S30.0XXA Contusion of lower back and pelvis, initial encounter (principal); R10.84 Generalized abdominal pain; I10 Essential (primary) hypertension; I73.9 Peripheral vascular disease, unspecified; E11.9 Type 2 diabetes mellitus without complications; Z79.4 Long term (current) use of insulin; Z88.0 Allergy status to penicillin; Z88.8 Allergy status to other drugs, medicaments and biological substances; W18.39XA Other fall on same level, initial encounter; Y93.89 Activity, other specified; Y92.89 Other specified places as the place of occurrence of the external cause; Y99.8 Other external cause status
CPT/HCPCS: 36415; 74177; 80053; 81001; 82805; 82962; 83690; 85025; 96374; 96375; 99284; J2270; J2405; J7040; Q9967; J1815

== ENCOUNTER 2020-12-26 09:13 | Inpatient (IN) | payer MEDICARE, OTHER ==
[2020-12-31 12:38] VITALS: BP 142/69
== END 2020-12-31 17:45 | disposition home or self-care (01) | DRG 101 ==
LOC: ED 09:13 → 4A 13:17 → MERGE 13:17 → 4A 16:22
PROVIDERS: ADMIT Internal Medicine; ATTEND Internal Medicine
DX: G40.909 Epilepsy, unspecified, not intractable, without status epilepticus (principal); G93.40 Encephalopathy, unspecified; I10 Essential (primary) hypertension; R53.81 Other malaise; E78.2 Mixed hyperlipidemia; F03.90 Unspecified dementia, unspecified severity, without behavioral disturbance, psychotic disturbance, mood disturbance, and anxiety; D75.1 Secondary polycythemia; H54.7 Unspecified visual loss; E11.9 Type 2 diabetes mellitus without complications; L23.9 Allergic contact dermatitis, unspecified cause; Z86.73 Personal history of transient ischemic attack (TIA), and cerebral infarction without residual deficits; Z82.49 Family history of ischemic heart disease and other diseases of the circulatory system
CPT/HCPCS: 36415; 70450; 70496; 70498; 70551; 74176; 80048; 80053; 80307; 80320; 81001; 82140; 82962; 83036; 84484; 85025; 85027; 85610; 85670; 85730; 93005; 95819; G0378; A9270-GY; G0480; J0360; J1815; J7030; Q9967

== ENCOUNTER 2021-12-08 03:11 | Emergency (ER) | payer MEDICARE, OTHER ==
--- NOTE | 2021-12-08 07:48 | Cat Scan Report ---
CT HEAD WITHOUT CONTRAST INDICATION / CLINICAL INFORMATION: fall. TECHNIQUE: CT head was performed without administration of intravenous contrast. All CT scans at this location are performed using CT dose reduction for ALARA by means of automated exposure control. COMPARISON: None available. FINDINGS: CEREBRAL HEMISPHERES: Generalized atrophy and bilateral regions of periventricular white matter hypoa ttenuation compatible with microvascular ischemia are demonstrated. No midline shift. Basal cisterns patent. Small lacunar infarction right thalamus. Bilateral basal ganglia lacunar infarctions. HEMORRHAGE: None. CEREBELLUM / BRAINSTEM: No significant abnormality. ORBITS: No significant abnormality. SOFT TISSUES: No significant abnormality. SKULL: No significant abnormality. PARANASAL SINUSES / MASTOID AIR CELLS: Mucous retention cyst left maxillary sinus. ADDITIONAL FINDINGS: None. IMPRESSION: 1. No acute intracranial abnormality. Signer Name: Roman Haley II, MD Signed: 12/08/2021 7:43 AM Workstation Name: [id number]
--- NOTE | 2021-12-08 07:54 | Emergency Department Report ---
ED General Adult HPI - General Chief complaint: Fall Stated complaint: FELL FROM WHELLCHAIR Time Seen by Provider: 12/08/21 06:22 Source: patient, EMS Mode of arrival: Stretcher Limitations: No Limitations - History of Present Illness Initial comments: Slipped out of wheelchair and hit head against wheelchair handle. No LOC. No bleeding noted. Alert and responsive. -: Sudden, hour(s) Location: head Quality: aching Consistency: constant Improves with: none Worsens with: none Associated Symptoms: headaches. denies: denies other symptoms, confusion, chest pain, cough, loss of appetite Treatments Prior to Arrival: none - Related Data Home Medications Medication Instructions Recorded Confirmed Last Taken Ascorbic Acid 500 mg PO DAILY 07/12/16 07/07/20 Unknown Brimonidine 0.15% 2 drop OU Q8H 07/12/16 07/07/20 Unknown Cosopt Pf Eye Drops 1 drop OU BID 07/12/16 07/07/20 Unknown Docusate Sodium 200 mg PO BID 07/12/16 07/07/20 Unknown Insulin Glargine 14 units SQ HS 07/12/16 07/07/20 Unknown Lisinopril 10 mg PO DAILY 07/12/16 07/07/20 Unknown Montelukast 10 mg PO HS 07/12/16 07/07/20 Unknown NexIUM 24Hr 40 mg PO DAILY 07/12/16 07/07/20 Unknown Potassium Chloride 20 meq PO DAILY 07/12/16 07/07/20 Unknown Simvastatin 20 mg PO DAILY 07/12/16 07/07/20 Unknown amLODIPine 10 mg PO DAILY 07/12/16 07/07/20 Unknown metFORMIN XR 1,000 mg PO DAILY 07/12/16 07/07/20 Unknown hydrOXYzine HCL [Atarax] 25 mg PO 4XD PRN 07/06/20 07/07/20 Unknown AtorvaSTATin [Lipitor] 20 mg PO QHS 12/27/20 12/27/20 Unknown Felodipine [Plendil] 5 mg PO QDAY 12/27/20 12/27/20 Unknown Lacosamide [Vimpat] 200 mg PO BID 12/27/20 12/27/20 12/27/20 10:00 Losartan [Cozaar] 100 mg PO QDAY 12/27/20 12/27/20 12/27/20 10:00 Montelukast [Singulair] 10 mg PO QPM 12/27/20 12/27/20 Unknown Oxybutynin [Ditropan] 5 mg PO DAILY 12/27/20 12/27/20 12/27/20 10:00 hydrOXYzine HCL [Atarax] 50 mg PO BID 12/27/20 12/27/20 12/27/20 10:00 metFORMIN [Glucophage] 500 mg PO BID 12/27/20 12/27/20 12/27/20 10:00 Previous Rx's Medication Instructions Recorded Last Taken Type Detrol LA 4 mg PO DAILY #30 12/20/16 Unknown Rx Doxepin 25 mg PO HS #30 12/20/16 Unknown Rx Ibuprofen [Motrin 800 MG tab] 800 mg PO Q8HR PRN #20 tablet 07/27/18 Unknown Rx Memantine 5 mg PO Q12HR #60 tablet 12/31/20 Unknown Rx Allergies Allergy/AdvReac Type Severity Reaction Status Date / Time diphenhydramine HCl Allergy Anaphylaxis Verified 12/08/21 07:49 [From Benadryl] Penicillins Allergy Anaphylaxis Verified 12/08/21 07:49 ED Review of Systems ROS: Stated complaint: FELL FROM WHELLCHAIR Other details as noted in HPI Constitutional: denies: chills, fever Eyes: denies: eye pain, eye discharge, vision change ENT: denies: ear pain, throat pain Respiratory: denies: cough, shortness of breath, wheezing Cardiovascular: denies: chest pain, palpitations Endocrine: no symptoms reported Gastrointestinal: denies: abdominal pain, nausea, diarrhea Genitourinary: denies: urgency, dysuria, discharge Musculoskeletal: denies: back pain, joint swelling, arthralgia Skin: denies: rash, lesions Neurological: denies: headache, weakness, paresthesias Psychiatric: denies: anxiety, depression Hematological/Lymphatic: denies: easy bleeding, easy bruising ED Past Medical Hx - Past Medical History Previous Medical History?: Yes Hx Hypertension: Yes Hx Diabetes: Yes Additional medical history: Pancreatitis, PVD - Surgical History Past Surgical History?: Yes Additional Surgical History: "Pancreas" - Social History Smoking Status: Never Smoker Substance Use Type: None - Medications Home Medications: Home Medications Medication Instructions Recorded Confirmed Last Taken Type Ascorbic Acid 500 mg PO DAILY 07/12/16 07/07/20 Unknown History Brimonidine 0.15% 2 drop OU Q8H 07/12/16 07/07/20 Unknown History Cosopt Pf Eye Drops 1 drop OU BID 07/12/16 07/07/20 Unknown History Docusate Sodium 200 mg PO BID 07/12/16 07/07/20 Unknown History Insulin Glargine 14 units SQ HS 07/12/16 07/07/20 Unknown History Lisinopril 10 mg PO DAILY 07/12/16 07/07/20 Unknown History Montelukast 10 mg PO HS 07/12/16 07/07/20 Unknown History NexIUM 24Hr 40 mg PO DAILY 07/12/16 07/07/20 Unknown History Potassium Chloride 20 meq PO DAILY 07/12/16 07/07/20 Unknown History Simvastatin 20 mg PO DAILY 07/12/16 07/07/20 Unknown History amLODIPine 10 mg PO DAILY 07/12/16 07/07/20 Unknown History metFORMIN XR 1,000 mg PO DAILY 07/12/16 07/07/20 Unknown History Detrol LA 4 mg PO DAILY #30 12/20/16 07/07/20 Unknown Rx Doxepin 25 mg PO HS #30 12/20/16 07/07/20 Unknown Rx Ibuprofen [Motrin 800 MG tab] 800 mg PO Q8HR PRN #20 tablet 07/27/18 07/07/20 Unknown Rx hydrOXYzine HCL [Atarax] 25 mg PO 4XD PRN 07/06/20 07/07/20 Unknown History AtorvaSTATin [Lipitor] 20 mg PO QHS 12/27/20 12/27/20 Unknown History Felodipine [Plendil] 5 mg PO QDAY 12/27/20 12/27/20 Unknown History Lacosamide [Vimpat] 200 mg PO BID 12/27/20 12/27/20 12/27/20 10:00 History Losartan [Cozaar] 100 mg PO QDAY 12/27/20 12/27/20 12/27/20 10:00 History Montelukast [Singulair] 10 mg PO QPM 12/27/20 12/27/20 Unknown History Oxybutynin [Ditropan] 5 mg PO DAILY 12/27/20 12/27/20 12/27/20 10:00 History hydrOXYzine HCL [Atarax] 50 mg PO BID 12/27/20 12/27/20 12/27/20 10:00 History metFORMIN [Glucophage] 500 mg PO BID 12/27/20 12/27/20 12/27/20 10:00 History Memantine 5 mg PO Q12HR #60 tablet 12/31/20 Unknown Rx ED Physical Exam - General Limitations: No Limitations General appearance: alert, in no apparent distress - Head Head exam: Present: atraumatic, normocephalic - Eye Eye exam: Present: normal appearance - ENT ENT exam: Present: mucous membranes moist - Neck Neck exam: Present: normal inspection - Respiratory Respiratory exam: Present: normal lung sounds bilaterally. Absent: respiratory distress - Cardiovascular Cardiovascular Exam: Present: regular rate, normal rhythm. Absent: systolic murmur, diastolic murmur, rubs, gallop - GI/Abdominal GI/Abdominal exam: Present: soft, normal bowel sounds - Extremities Exam Extremities exam: Present: normal inspection - Back Exam Back exam: Present: normal inspection - Neurological Exam Neurological exam: Present: alert, oriented X3 - Psychiatric Psychiatric exam: Present: normal affect, normal mood - Skin Skin exam: Present: warm, dry, intact, normal color. Absent: rash ED Course Vital Signs 12/08/21 12/08/21 12/08/21 03:12 03:37 03:45 Temperature 98.2 F Pulse Rate 76 72 Respiratory 18 18 17 Rate Blood Pressure 170/90 179/79 Blood Pressure [Left] O2 Sat by Pulse 99 99 98 Oximetry 12/08/21 12/08/21 12/08/21 04:01 04:16 04:31 Temperature Pulse Rate 72 71 70 Respiratory 17 19 21 Rate Blood Pressure 175/80 175/80 Blood Pressure [Left] O2 Sat by Pulse 99 99 99 Oximetry 12/08/21 12/08/21 12/08/21 04:45 05:00 05:15 Temperature Pulse Rate 74 77 79 Respiratory 17 19 19 Rate Blood Pressure 175/80 175/80 175/80 Blood Pressure [Left] O2 Sat by Pulse 99 99 98 Oximetry 12/08/21 12/08/21 12/08/21 05:31 05:45 06:01 Temperature Pulse Rate 77 73 81 Respiratory 24 17 18 Rate Blood Pressure 175/80 178/87 178/87 Blood Pressure [Left] O2 Sat by Pulse 100 100 99 Oximetry 12/08/21 07:49 Temperature 97.9 F Pulse Rate 87 Respiratory 14 Rate Blood Pressure Blood Pressure 178/89 [Left] O2 Sat by Pulse 97 Oximetry Critical care attestation.: If time is entered above; I have spent that time in minutes in the direct care of this critically ill patient, excluding procedure time. ED Disposition Clinical Impression: Head injury, Fall Disposition: 01 HOME / SELF CARE / HOMELESS Is pt being admited?: No Does the pt Need Aspirin: No Condition: Stable
[2021-12-08] MEDS ORDERED: ACETAMINOPHEN 325 MG TAB PO ONE (08:01)
[2021-12-08] MEDS ORDERED: ONDANSETRON 4 MG ODT TAB PO ONE (08:01)
[2021-12-08 09:19] VITALS: BP 181/71
== END 2021-12-08 09:39 | disposition home or self-care (01) ==
LOC: ED 03:11
DX: S09.90XA Unspecified injury of head, initial encounter (principal); I10 Essential (primary) hypertension; E11.9 Type 2 diabetes mellitus without complications; Z98.890 Other specified postprocedural states; Z88.0 Allergy status to penicillin; Z88.8 Allergy status to other drugs, medicaments and biological substances; W05.0XXA Fall from non-moving wheelchair, initial encounter; Y93.89 Activity, other specified; Y92.89 Other specified places as the place of occurrence of the external cause; Y99.8 Other external cause status
CPT/HCPCS: 70450; 99284; J3490; Q0162